=== PATIENT | female | born 1975 | race African-American/Black ===

== ENCOUNTER 2018-03-16 22:32 | Inpatient (IN) | payer MEDICAID, OTHER ==
[~2018-03-16] VITALS: Ht 165.1 cm; Wt 97.5 kg
[2018-03-16] MEDS ORDERED: MORPHINE SULFATE 4 MG/ML CPJ (NOT FOR IM USE) IV ONE (23:30)
[2018-03-16] MEDS ORDERED: ONDANSETRON HCL 4MG/2ML INJ IV ONE (23:30)
[2018-03-17 00:03] LABS: BASOPHILS % 0.2 % (0.0-2.0); EOSINOPHILS % 1.5 % (0.0-5.0); HEMATOCRIT. 44.3 % (36.0-48.0); HEMOGLOBIN. 15.2 g/dL (12.0-16.0); LYMPHOCYTES % 20.4 % (20.0-50.0); MEAN CORPUSCULAR HEMOGLOBIN 33.1 pg (28.0-32.0); MEAN CORPUSCULAR VOLUME 96.6 fL (81.0-99.0); MEAN PLATELET VOLUME 13.1 fl (7.4-10.4); MONOCYTES % 4.9 % (2.0-8.0); PLATELET 127 x1000/uL (130-400); RED BLOOD CELL COUNT 4.59 mill/uL (4.2-5.4); RED CELL DISTRIBUTION WIDTH 13.5 % (11.6-14.6)
[2018-03-17 00:09] LABS: CHLORIDE 102 mEq/L (98-107)
[2018-03-17 00:13] LABS: PROTHROMBIN TIME 10.3 sec (9.1-11.1)
[2018-03-17 00:39] LABS: CLARITY URINE TURBID (CLEAR); COLOR URINE ORANGE (YELLOW); KETONES URINE NEGATIVE (NEGATIVE); LEUKOCYTE ESTERASE URINE 2+ (NEGATIVE); NITRITE URINE POSITIVE (NEGATIVE); OCCULT BLOOD URINE 3+ (NEGATIVE); PROTEIN URINE 2+ (NEGATIVE); SPECIFIC GRAVITY URINE 1.032 (1.005-1.030)
[2018-03-17] MEDS ORDERED: MORPHINE SULFATE 4 MG/ML CPJ (NOT FOR IM USE) IV ONE (00:45)
[2018-03-17] MEDS ORDERED: CEFTRIAXONE 1 G PREMIX 50 ML IV SCH (01:54)
[2018-03-17] MEDS ORDERED: ONDANSETRON HCL 4MG/2ML INJ IV ONE (02:00)
[2018-03-17] MEDS ORDERED: METRONIDAZOLE 500 MG PREMIX 100 ML IV ONE (02:00)
[2018-03-17] MEDS ORDERED: HYDROMORPHONE HCL/PF 2MG/ML CPJ IV ONE (02:00)
[2018-03-17] MEDS ORDERED: SODIUM CHLORIDE 0.9% 1,000 ML IV SCH (02:03)
[2018-03-17] MEDS ORDERED: HYDROMORPHONE HCL/PF 2MG/ML CPJ IV SCH (02:20)
[2018-03-17] MEDS ORDERED: KCL 20MEQ/100ML PREMIX 100 ML IV ONE (02:30)
[2018-03-17 04:00] VITALS: BP 121/77
[2018-03-17 05:00] VITALS: BP 116/60
[2018-03-17 08:00] VITALS: BP 142/80
[2018-03-17] MEDS ORDERED: DOCUSATE SODIUM 100MG CAPSULE PO PRN (08:15)
[2018-03-17] MEDS ORDERED: NA PHOS,M-B/NA PHOS,DI-BA ENEMA 118ML PR PRN (08:15)
[2018-03-17] MEDS ORDERED: ENOXAPARIN 40MG/0.4ML SYR SUBCUT SCH (08:15)
[2018-03-17] MEDS ORDERED: MAGNESIUM/ALUMINUM HYDROXIDE/SIMETHICONE 30ML UDC PO PRN (08:15)
[2018-03-17] MEDS ORDERED: ACETAMINOPHEN 650MG SUPP PR PRN (08:15)
[2018-03-17] MEDS ORDERED: ONDANSETRON HCL 4MG/2ML INJ IV PRN (08:15)
[2018-03-17] MEDS ORDERED: IPRATROPIUM/ALBUTEROL 0.5-3(2.5)MG/3ML NEB INH PRN (08:15)
[2018-03-17] MEDS ORDERED: ACETAMINOPHEN 650MG/20.3ML UDC GT PRN (08:15)
[2018-03-17] MEDS ORDERED: ACETAMINOPHEN 325MG TABLET PO PRN (08:15)
[2018-03-17] MEDS ORDERED: DIPHENHYDRAMINE 50MG/ML VIAL IV PRN (08:15)
[2018-03-17] MEDS ORDERED: CLONIDINE 0.1MG TABLET PO PRN (08:15)
[2018-03-17] MEDS ORDERED: GUAIFENESIN 200MG/10ML SUGAR FREE UDC PO PRN (08:15)
[2018-03-17] MEDS: INSULIN LISPRO 100 UNITS/ML SUBCUT SCH ×3 (08:58→17:36)
[2018-03-17] MEDS ORDERED: DEXTROSE 50% WATER 50ML SYRINGE IV PRN (09:00)
[2018-03-17] MEDS ORDERED: ENOXAPARIN 30MG/0.3ML SYR SUBCUT SCH (09:00)
[2018-03-17] MEDS: BLOOD SUGAR DIAGNOSTIC STRIP TEST SCH ×3 (09:00→17:36)
[2018-03-17] MEDS: MORPHINE SULFATE 4 MG/ML CPJ (NOT FOR IM USE) IV PRN ×3 (10:06→21:21)
[2018-03-17] MEDS ORDERED: POTASSIUM CHLORIDE INJ 40 MEQ in DEXT 5% WATER 500 ML IV NR (11:00)
[2018-03-17] MEDS: POTASSIUM CHLORIDE 20MEQ TABLET SR PO PRN (11:42)
[2018-03-17 11:47] LABS: BASOPHILS % 0.1 % (0.0-2.0); EOSINOPHILS % 0.1 % (0.0-5.0); HEMATOCRIT. 44.5 % (36.0-48.0); HEMOGLOBIN. 14.9 g/dL (12.0-16.0); MEAN CORPUSCULAR HEMOGLOBIN 32.6 pg (28.0-32.0); MEAN PLATELET VOLUME 13.6 fl (7.4-10.4); MONOCYTES % 4.3 % (2.0-8.0); NEUTROPHILS % 86.5 % (40.0-76.0); PLATELET 121 x1000/uL (130-400); RED BLOOD CELL COUNT 4.59 mill/uL (4.2-5.4); RED CELL DISTRIBUTION WIDTH 13.9 % (11.6-14.6)
[2018-03-17 12:00] VITALS: BP_SYST 109; BP_SYST 141; BP_DIAS 73; BP_DIAS 81
[2018-03-17 12:27] LABS: CHLORIDE 105 mEq/L (98-107)
[2018-03-17] MEDS: SODIUM CHLORIDE 0.9% 1,000 ML IV SCH (12:46)
[2018-03-17] MEDS: METOCLOPRAMIDE HCL 10MG/2ML VIAL IV SCH ×2 (13:30→17:31)
[2018-03-17] MEDS: SODIUM CHLORIDE 0.9% INJ 3ML FLUSH IVF SCH ×2 (14:00→21:10)
[2018-03-17 16:00] VITALS: BP_SYST 109; BP_SYST 113; BP_DIAS 61; BP_DIAS 73
[2018-03-17] MEDS: METRONIDAZOLE 500 MG PREMIX 100 ML IV SCH ×2 (16:15→23:09)
[2018-03-17 16:31] LABS: BASOPHILS % 0.2 % (0.0-2.0); EOSINOPHILS % 0.2 % (0.0-5.0); HEMATOCRIT. 44.5 % (36.0-48.0); HEMOGLOBIN. 14.8 g/dL (12.0-16.0); LYMPHOCYTES % 10.7 % (20.0-50.0); MEAN CORPUSCULAR HEMOGLOBIN 32.2 pg (28.0-32.0); MEAN CORPUSCULAR VOLUME 96.7 fL (81.0-99.0); MEAN PLATELET VOLUME 13.5 fl (7.4-10.4); MONOCYTES % 4.5 % (2.0-8.0); NEUTROPHILS % 84.4 % (40.0-76.0); PLATELET 126 x1000/uL (130-400); RED CELL DISTRIBUTION WIDTH 13.8 % (11.6-14.6)
[2018-03-17 16:39] LABS: CHLORIDE 108 mEq/L (98-107)
[2018-03-17 16:47] LABS: AMYLASE 1080 IU/L (25-115)
[2018-03-17 20:00] VITALS: BP 117/60
[2018-03-17] MEDS: CEFTRIAXONE 1 G PREMIX 50 ML IV SCH (23:09)
[2018-03-18] VITALS: BP 109/70
[2018-03-18] MEDS: METOCLOPRAMIDE HCL 10MG/2ML VIAL IV SCH ×5 (00:44→22:47)
[2018-03-18] MEDS: MORPHINE SULFATE 4 MG/ML CPJ (NOT FOR IM USE) IV PRN ×5 (01:37→20:18)
[2018-03-18 04:00] VITALS: BP 108/71
[2018-03-18] MEDS: METRONIDAZOLE 500 MG PREMIX 100 ML IV SCH ×3 (05:29→22:45)
[2018-03-18] MEDS: SODIUM CHLORIDE 0.9% INJ 3ML FLUSH IVF SCH ×3 (05:45→22:46)
[2018-03-18] MEDS: SODIUM CHLORIDE 0.9% 1,000 ML IV SCH ×2 (05:45→17:39)
[2018-03-18 08:00] VITALS: BP 112/70
[2018-03-18] MEDS ORDERED: ENOXAPARIN 40MG/0.4ML SYR SUBCUT SCH (09:00)
[2018-03-18 11:50] LABS: BASOPHILS % 0.2 % (0.0-2.0); EOSINOPHILS % 0.2 % (0.0-5.0); HEMATOCRIT. 42.2 % (36.0-48.0); HEMOGLOBIN. 14.2 g/dL (12.0-16.0); LYMPHOCYTES % 9.9 % (20.0-50.0); MEAN CORPUSCULAR HEMOGLOBIN 32.8 pg (28.0-32.0); MEAN CORPUSCULAR VOLUME 97.7 fL (81.0-99.0); MEAN PLATELET VOLUME 13.1 fl (7.4-10.4); MONOCYTES % 4.6 % (2.0-8.0); NEUTROPHILS % 85.1 % (40.0-76.0); PLATELET 108 x1000/uL (130-400); RED BLOOD CELL COUNT 4.32 mill/uL (4.2-5.4); RED CELL DISTRIBUTION WIDTH 13.8 % (11.6-14.6)
[2018-03-18 12:00] VITALS: BP 111/64
[2018-03-18 12:09] LABS: CHLORIDE 105 mEq/L (98-107)
[2018-03-18 12:30] LABS: LDL CHOLESTEROL 152 mg/dL (5-100)
[2018-03-18 12:33] LABS: HDL CHOLESTEROL 15 mg/dL (40-59)
[2018-03-18 12:34] LABS: AMYLASE 743 IU/L (25-115)
[2018-03-18 16:00] VITALS: BP 108/62
[2018-03-18 20:00] VITALS: BP 110/72
[2018-03-18] MEDS: CEFTRIAXONE 1 G PREMIX 50 ML IV SCH (22:46)
[2018-03-19] VITALS: BP 109/68
[2018-03-19 04:00] VITALS: BP 117/59
[2018-03-19] MEDS: MORPHINE SULFATE 4 MG/ML CPJ (NOT FOR IM USE) IV PRN ×2 (05:13→09:48)
[2018-03-19] MEDS: METOCLOPRAMIDE HCL 10MG/2ML VIAL IV SCH ×3 (05:36→18:00)
[2018-03-19] MEDS: METRONIDAZOLE 500 MG PREMIX 100 ML IV SCH ×2 (05:36→17:10)
[2018-03-19] MEDS: SODIUM CHLORIDE 0.9% INJ 3ML FLUSH IVF SCH ×2 (05:46→14:37)
[2018-03-19] MEDS: SODIUM CHLORIDE 0.9% 1,000 ML IV SCH ×2 (05:49→17:10)
[2018-03-19 09:04] LABS: BASOPHILS % 0.1 % (0.0-2.0); EOSINOPHILS % 0.2 % (0.0-5.0); HEMATOCRIT. 38.9 % (36.0-48.0); HEMOGLOBIN. 12.9 g/dL (12.0-16.0); LYMPHOCYTES % 10.2 % (20.0-50.0); MEAN CORPUSCULAR HEMOGLOBIN 32.4 pg (28.0-32.0); MEAN CORPUSCULAR VOLUME 97.6 fL (81.0-99.0); MEAN PLATELET VOLUME 13.7 fl (7.4-10.4); MONOCYTES % 4.4 % (2.0-8.0); NEUTROPHILS % 85.1 % (40.0-76.0); PLATELET 102 x1000/uL (130-400); RED BLOOD CELL COUNT 3.99 mill/uL (4.2-5.4); RED CELL DISTRIBUTION WIDTH 13.4 % (11.6-14.6)
[2018-03-19 09:12] LABS: INR 1.1; PARTIAL THROMBOPLASTIN TIME 33.2 sec (23.4-31.0); PROTHROMBIN TIME 11.4 sec (9.1-11.1)
[2018-03-19 09:38] LABS: CHLORIDE 103 mEq/L (98-107)
[2018-03-19 12:00] VITALS: BP 115/61
[2018-03-19] MEDS: POTASSIUM CHLORIDE 20MEQ TABLET SR PO PRN (14:38)
[2018-03-19] MEDS: HYDROCODONE/ACETAMINOPHEN 5/325MG TABLET PO PRN ×3 (14:40→22:55)
[2018-03-19 20:00] VITALS: BP 121/65
[2018-03-20] VITALS: BP 107/59
[2018-03-20] MEDS: METOCLOPRAMIDE HCL 10MG/2ML VIAL IV SCH ×3 (00:05→13:06)
[2018-03-20] MEDS: METRONIDAZOLE 500 MG PREMIX 100 ML IV SCH ×3 (00:05→15:45)
[2018-03-20] MEDS: SODIUM CHLORIDE 0.9% INJ 3ML FLUSH IVF SCH ×3 (00:05→13:06)
[2018-03-20] MEDS: CEFTRIAXONE 1 G PREMIX 50 ML IV SCH (00:05)
[2018-03-20 04:00] VITALS: BP 108/54
[2018-03-20] MEDS: SODIUM CHLORIDE 0.9% 1,000 ML IV SCH ×2 (05:35→16:06)
[2018-03-20 05:45] LABS: BASOPHILS % 0.2 % (0.0-2.0); EOSINOPHILS % 0.9 % (0.0-5.0); HEMATOCRIT. 37.5 % (36.0-48.0); HEMOGLOBIN. 12.5 g/dL (12.0-16.0); LYMPHOCYTES % 14.1 % (20.0-50.0); MEAN CORPUSCULAR HEMOGLOBIN 32.6 pg (28.0-32.0); MEAN CORPUSCULAR VOLUME 97.9 fL (81.0-99.0); MEAN PLATELET VOLUME 13.7 fl (7.4-10.4); MONOCYTES % 5.4 % (2.0-8.0); NEUTROPHILS % 79.4 % (40.0-76.0); PLATELET 105 x1000/uL (130-400); RED BLOOD CELL COUNT 3.83 mill/uL (4.2-5.4); RED CELL DISTRIBUTION WIDTH 13.7 % (11.6-14.6)
[2018-03-20 05:49] LABS: INR 1.1; PARTIAL THROMBOPLASTIN TIME 32.2 sec (23.4-31.0); PROTHROMBIN TIME 10.9 sec (9.1-11.1)
[2018-03-20 05:57] LABS: CHLORIDE 106 mEq/L (98-107)
[2018-03-20 06:04] LABS: AMYLASE 103 IU/L (25-115)
[2018-03-20] MEDS: HYDROCODONE/ACETAMINOPHEN 5/325MG TABLET PO PRN (06:40)
[2018-03-20 08:00] VITALS: BP 107/62
[2018-03-20 11:25] VITALS: BP 117/69
[2018-03-20 12:00] VITALS: BP 110/63
[2018-03-20 16:00] VITALS: BP 111/63
[2018-03-20] MEDS ORDERED: METRONIDAZOLE 500MG TABLET PO SCH (22:00)
== END 2018-03-20 17:41 | disposition home or self-care (01) ==
LOC: ER 22:32 → 6EST 03-17 02:05 → EDBEDREQ 03-17 02:07 → EDBEDREQTM 03-17 02:07 → ENRESERV 03-17 02:33
PROVIDERS: ADMIT Family Medicine; ATTEND Family Medicine
DX: K80.71 Calculus of gallbladder and bile duct without cholecystitis with obstruction (principal); K85.10 Biliary acute pancreatitis without necrosis or infection; D69.6 Thrombocytopenia, unspecified; N39.0 Urinary tract infection, site not specified; E80.6 Other disorders of bilirubin metabolism; R31.9 Hematuria, unspecified; K76.0 Fatty (change of) liver, not elsewhere classified; E66.9 Obesity, unspecified; E87.6 Hypokalemia; Z98.891 History of uterine scar from previous surgery; Z68.35 Body mass index [BMI] 35.0-35.9, adult
CPT/HCPCS: 36415; 74176; 74181; 76705; 80048; 80061; 80076; 81025; 82150; 82962; 96365; 96367; 96375; 96376; 99285; J0696; J1170; J1650; J2270; J2405; J2765; J3480; J3490; J7030; J7042; J7060

== ENCOUNTER 2020-11-12 19:14 | Emergency (ER) | payer BC, MEDICAID, OTHER ==
[~2020-11-12] VITALS: Ht 162.6 cm; Wt 93.0 kg
[2020-11-12] MEDS ORDERED: ONDANSETRON 4MG ODT PO ONE (20:30)
[2020-11-12] MEDS ORDERED: MORPHINE SULFATE 10 MG/ML CPJ IM ONE (20:30)
[2020-11-12] MEDS ORDERED: KETOROLAC 60MG/2ML VIAL IM ONE (20:30)
[2020-11-12] MEDS ORDERED: IBUP-2028 MT (21:32)
[2020-11-12] MEDS ORDERED: HYDR-4001 MT (21:32)
[2020-11-12 21:40] VITALS: BP 116/70
== END 2020-11-12 22:03 | disposition home or self-care (01) ==
LOC: ER 19:14
DX: S83.8X1A Sprain of other specified parts of right knee, initial encounter (principal); F17.210 Nicotine dependence, cigarettes, uncomplicated; Z98.890 Other specified postprocedural states; W01.0XXA Fall on same level from slipping, tripping and stumbling without subsequent striking against object, initial encounter; Y93.89 Activity, other specified; Y92.018 Other place in single-family (private) house as the place of occurrence of the external cause
CPT/HCPCS: 73562; 73590; 73630; 96372; 99284; J1885; J2270; L1830; Q0162